=== PATIENT | female | born 1940 | race Caucasian/White ===

== ENCOUNTER 2017-04-12 11:38 | Inpatient (IN) | payer MEDICARE, BC ==
[~2017-04-12] VITALS: Ht 162.6 cm; Wt 56.7 kg
[2017-04-12] MEDS ORDERED: OMEG1CAP PO (12:01)
[2017-04-12] MEDS ORDERED: GLUC1500 PO (12:01)
[2017-04-12] MEDS ORDERED: CYAN100071 PO (12:01)
[2017-04-12] MEDS ORDERED: MULT-39 PO (12:01)
[2017-04-12] MEDS ORDERED: LOSA25TA13 PO (12:01)
[2017-04-12] MEDS ORDERED: ASPI-1094 PO (12:01)
[2017-04-12] MEDS ORDERED: ATOR40TA PO (12:01)
[2017-04-12] MEDS ORDERED: CALC-860 PO (12:01)
--- NOTE | 2017-04-12 12:06 | NUR ---
Pt BIB family, reports she has been having halucinations x 1 week, denies SI, HI. Pt has no complaints, no distress noted.
[2017-04-12 12:46] LABS: BASOPHILS % (AUTO) 0.5 % (0.0-2.0); EOSINOPHILS % (AUTO) 0.8 % (0.0-7.0); HEMATOCRIT 45.5 % (37-47); HEMOGLOBIN 14.9 G/DL (12.0-16.0); LYMPHOCYTES # (AUTO) 1.1 K/UL (0.8-4.8); LYMPHOCYTES % (AUTO) 21.7 % (20.5-51.5); MEAN CORPUSCULAR HEMOGLOBIN 30.6 UUG (27.0-31.0); MEAN CORPUSCULAR HGB CONC 33 g/dL (32.0-37.0); MEAN CORPUSCULAR VOLUME 93.3 FL (81.0-99.0); MONOCYTES # (AUTO) 0.3 K/UL (0.1-1.30); MONOCYTES % (AUTO) 5.6 % (0.0-11.0); NEUTROPHILS # (AUTO) 3.8 K/UL (1.8-8.9); NEUTROPHILS % (AUTO) 71.4 % (38.5-71.5); PLATELET COUNT (AUTO) 192 K/UL (150-450); RED BLOOD CELL COUNT(AUTO) 4.88 MIL/UL (4.2-5.4); WHITE BLOOD COUNT (AUTO) 5.3 K/UL (4.0-11.2)
[2017-04-12 12:54] LABS: CARBON DIOXIDE 27 mmol/L (21-32); CHLORIDE 106 mmol/L (98-107); GLUCOSE 130 mg/dL (74-106); POTASSIUM 4.2 mmol/L (3.5-5.1); UREA NITROGEN, BLOOD 17 mg/dL (7-18)
[2017-04-12 12:57] LABS: ETHANOL < 3 MG/DL (0-0)
[2017-04-12 13:07] LABS: ALANINE AMINOTRANSFERASE 22 U/L (14-59); ALKALINE PHOSPHATASE 97 U/L (50-136); ASPARTATE AMINOTRANSFERASE 15 U/L (15-37); BILIRUBIN,DIRECT 0.1 mg/dL (0.0-0.2); BILIRUBIN,TOTAL 0.7 mg/dL (0.2-1.0); TOTAL PROTEIN, SERUM 7.3 g/dL (6.4-8.2)
[2017-04-12 13:11] LABS: ACETAMINOPHEN < 2.0 ug/mL (10-30)
--- NOTE | 2017-04-12 13:28 | NUR ---
John, psych razor grinder, present bedside.
--- NOTE | 2017-04-12 14:26 | NUR ---
Pt resting in bed, no distress noted, family bedside. Pt was placed on 5150 hold -- 1345. Called for bed assignment, they will call back
--- NOTE | 2017-04-12 15:27 | NUR ---
report given to DEEPALI Grace.
[2017-04-12] MEDS ORDERED: ACETAMINOPHEN 325 MG TABLET PO PRN (16:15)
[2017-04-12] MEDS ORDERED: MAG HYDROX/AL HYDROX/SIMETH 30 ML LIQUID UDC PO PRN (16:15)
[2017-04-12] MEDS ORDERED: TEMAZEPAM 7.5 MG CAPSULE PO PRN (16:15)
[2017-04-12] MEDS ORDERED: LORAZEPAM 0.5 MG TABLET PO PRN (16:15)
[2017-04-12] MEDS ORDERED: ZOLPIDEM 5 MG TABLET PO PRN (16:30)
[2017-04-12 16:38] VITALS: BP 161/83
[2017-04-12] MEDS: ATORVASTATIN 40 MG TABLET PO SCH (20:49)
[2017-04-12 21:50] VITALS: BP 159/100
--- NOTE | 2017-04-12 22:00 | NUR ---
received to care, sitting at her bedside, pleasant upon approach. appears distracted by internal stimuli. pt is alert, but confused. asked several times where her mother is, even though she is 77 years old. b/p was slightly elevated, 159/100, hr 70. [facility] was called. awaiting call back from MD. as of 2199, she appears to be asleep. no distress noted. will continue to monitor closely.
--- NOTE | 2017-04-13 06:00 | NUR ---
slept 8.5 hours, total.
--- NOTE | 2017-04-13 07:10 | NUR ---
RECEIVED TO CARE, PT SITTING UP IN BED, QUIET AND CALM, WILL CONT TO MONITOR FOR SAFETY.
[2017-04-13 07:56] LABS: THYROID STIMULATING HORMONE 2.218 mIU/mL (0.358-3.740)
[2017-04-13] MEDS ORDERED: MULTIVITAMINS PO SCH (09:00)
[2017-04-13] MEDS ORDERED: Medication Not On Formulary EA (Glucosamine Hcl 1,500 MG) PO SCH (09:00)
[2017-04-13] MEDS: CALCIUM CARB/VITAMIN D 600-400 MG TABLET PO SCH (09:08)
[2017-04-13] MEDS: CYANOCOBALAMIN 1,000 MCG TABLET PO SCH (09:08)
[2017-04-13] MEDS: MULTIVITAMINS,THERAPEUTIC TABLET PO SCH (09:08)
[2017-04-13] MEDS: OMEGA-3 FATTY ACIDS/FISH OIL CAPSULE PO SCH (09:08)
[2017-04-13] MEDS: LOSARTAN POTASSIUM 25 MG TABLET PO SCH (09:09)
[2017-04-13] MEDS: ASPIRIN 81 MG TAB.CHEW PO SCH (09:09)
--- NOTE | 2017-04-13 10:00 | NUR ---
PT TOOK ALL AM MEDS, SITTING UP IN BED.
[2017-04-13] MEDS: AMLODIPINE 2.5 MG TABLET PO SCH (10:30)
--- NOTE | 2017-04-13 10:30 | NUR ---
PT TOOK [employer] FOR BLOOD PRESSURE.
[2017-04-13] MEDS: BOOST PLUS 237 ML LIQUID (RICH CHOCOLATE) PO SCH ×2 (11:42→18:00)
[2017-04-13 15:00] VITALS: BP 137/82
--- NOTE | 2017-04-13 18:45 | NUR ---
PT REMAINS IN ROOM ISOLATIVE, FAMILY MEMBERS CAME TO SEE PT.
[2017-04-13 20:52] VITALS: BP 154/103
[2017-04-13] MEDS: ATORVASTATIN 40 MG TABLET PO SCH (22:47)
[2017-04-13] MEDS: QUETIAPINE FUMARATE 25 MG TABLET PO SCH (22:47)
[2017-04-14 07:30] VITALS: BP 130/80
[2017-04-14] MEDS: OMEGA-3 FATTY ACIDS/FISH OIL CAPSULE PO SCH (08:53)
[2017-04-14] MEDS: BOOST PLUS 237 ML LIQUID (RICH CHOCOLATE) PO SCH ×3 (08:53→17:14)
[2017-04-14] MEDS: MULTIVITAMINS,THERAPEUTIC TABLET PO SCH (08:53)
[2017-04-14] MEDS: CALCIUM CARB/VITAMIN D 600-400 MG TABLET PO SCH (08:54)
[2017-04-14] MEDS: LOSARTAN POTASSIUM 25 MG TABLET PO SCH (08:54)
[2017-04-14] MEDS: ASPIRIN 81 MG TAB.CHEW PO SCH (08:54)
[2017-04-14] MEDS: PAROXETINE HCL 10 MG TABLET PO SCH (08:54)
[2017-04-14] MEDS: CYANOCOBALAMIN 1,000 MCG TABLET PO SCH (08:54)
[2017-04-14] MEDS: AMLODIPINE 2.5 MG TABLET PO SCH (08:54)
[2017-04-14 10:48] LABS: *BLOOD, URINE Trace-lysed (NEGATIVE); *CLARITY,URINE SLIGHTLY CLOUDY (CLEAR); *COLOR,URINE YELLOW (YELLOW); *KETONES,URINE TRACE (NEGATIVE); *PROTEIN,URINE TRACE (NEGATIVE); *UROBILINOGEN,URINE 0.2 E.U./dl (NORMAL); LEUKOCYTE ESTERASE ,URINE NEGATIVE (NEGATIVE); NITRITE, URINE NEGATIVE (NEGATIVE); UGLUCOSE NEGATIVE (NEGATIVE)
[2017-04-14 10:56] LABS: *BILIRUBIN,URIN NEGATIVE (NEGATIVE)
[2017-04-14 11:07] LABS: BACTERIA,URINE FEW /HPF (NONE SEEN); SQUAMOUS EPITHELIAL CELL,UR MODERATE /HPF (NONE SEEN); WBC,URINE 0-3 /HPF (0-3)
[2017-04-14 11:08] LABS: CALCIUM OXALATE CRYSTALS,UR MODERATE /HPF (NONE SEEN); MUCUS,URINE MODERATE /LPF (0-FEW)
[2017-04-14 15:21] VITALS: BP 135/87
[2017-04-14 20:00] VITALS: BP 122/82
[2017-04-14] MEDS: QUETIAPINE FUMARATE 25 MG TABLET PO SCH (20:12)
[2017-04-14] MEDS: ATORVASTATIN 40 MG TABLET PO SCH (20:12)
[2017-04-15 00:10] VITALS: BP 134/70
[2017-04-15 07:24] LABS: BASOPHILS % (AUTO) 0.6 % (0.0-2.0); EOSINOPHILS # (AUTO) 0.1 K/uL (0.0-0.7); HEMATOCRIT 39.4 % (37-47); HEMOGLOBIN 13.3 G/DL (12.0-16.0); LYMPHOCYTES # (AUTO) 3.1 K/UL (0.8-4.8); LYMPHOCYTES % (AUTO) 44.9 % (20.5-51.5); MEAN CORPUSCULAR HEMOGLOBIN 31.6 UUG (27.0-31.0); MEAN CORPUSCULAR HGB CONC 34 g/dL (32.0-37.0); MEAN CORPUSCULAR VOLUME 93.5 FL (81.0-99.0); MONOCYTES # (AUTO) 0.5 K/UL (0.1-1.30); MONOCYTES % (AUTO) 8.2 % (0.0-11.0); NEUTROPHILS % (AUTO) 44.3 % (38.5-71.5); PLATELET COUNT (AUTO) 160 K/UL (150-450); RED BLOOD CELL COUNT(AUTO) 4.21 MIL/UL (4.2-5.4); WHITE BLOOD COUNT (AUTO) 6.7 K/UL (4.0-11.2)
[2017-04-15 07:30] VITALS: BP 145/77
[2017-04-15 07:52] LABS: ALANINE AMINOTRANSFERASE 17 U/L (14-59); ALKALINE PHOSPHATASE 73 U/L (50-136); ASPARTATE AMINOTRANSFERASE 16 U/L (15-37); BILIRUBIN,TOTAL 0.9 mg/dL (0.2-1.0); CARBON DIOXIDE 29 mmol/L (21-32); CHLORIDE 110 mmol/L (98-107); CREATININE 0.9 mg/dL (0.6-1.3); GLUCOSE 78 mg/dL (74-106); MAGNESIUM 1.9 mg/dL (1.8-2.4); PHOSPHOROUS 4.4 mg/dL (2.5-4.9); POTASSIUM 3.8 mmol/L (3.5-5.1); TOTAL PROTEIN, SERUM 5.8 g/dL (6.4-8.2); UREA NITROGEN, BLOOD 17 mg/dL (7-18)
[2017-04-15] MEDS: MULTIVITAMINS,THERAPEUTIC TABLET PO SCH (09:55)
[2017-04-15] MEDS: CALCIUM CARB/VITAMIN D 600-400 MG TABLET PO SCH (09:55)
[2017-04-15] MEDS: CYANOCOBALAMIN 1,000 MCG TABLET PO SCH (09:55)
[2017-04-15] MEDS: ASPIRIN 81 MG TAB.CHEW PO SCH (09:55)
[2017-04-15] MEDS: OMEGA-3 FATTY ACIDS/FISH OIL CAPSULE PO SCH (09:55)
[2017-04-15] MEDS: LOSARTAN POTASSIUM 25 MG TABLET PO SCH (09:56)
[2017-04-15] MEDS: PAROXETINE HCL 10 MG TABLET PO SCH (09:56)
[2017-04-15] MEDS: AMLODIPINE 2.5 MG TABLET PO SCH (09:56)
[2017-04-15] MEDS: BOOST PLUS 237 ML LIQUID (RICH CHOCOLATE) PO SCH ×3 (09:57→17:35)
--- NOTE | 2017-04-15 13:14 | NUR ---
Initial discharge instructions: Patient resides at home with her [[address] [place], [place],[address];[phone]].Per pt,she would like to return home upon discharge.SW attempted to speak with pt's ,Sony but no answer at this time.Therefore,SW left a voicemail requesting a call back.ROXANNE will speak with pt,family,and MD regarding appropriate discharge plans.ROXANNE will form a safe and proper discharge.
[2017-04-15] MEDS ORDERED: CIPROFLOXACIN HCL 250 MG TABLET PO SCH (14:45)
[2017-04-15] MEDS: CIPROFLOXACIN HCL 250 MG TABLET PO SCH ×2 (15:47→20:20)
[2017-04-15] MEDS: MEMANTINE HCL 5 MG TABLET PO SCH ×2 (15:48→20:20)
[2017-04-15 16:56] VITALS: BP 123/76
[2017-04-15 20:17] VITALS: BP 127/65
[2017-04-15] MEDS: ATORVASTATIN 40 MG TABLET PO SCH (20:19)
[2017-04-15] MEDS: QUETIAPINE FUMARATE 25 MG TABLET PO SCH (20:20)
[2017-04-15] MEDS: DONEPEZIL 5 MG TABLET PO SCH (20:20)
--- NOTE | 2017-04-15 22:00 | NUR ---
received to care, sitting in her room, pleasant, but confused, upon approach. compliant with medications, and staff direction. as of 2199, she appears to be asleep. no distress noted. will continue to monitor closely.
--- NOTE | 2017-04-16 06:00 | NUR ---
slept 6.0 hours, total.
[2017-04-16 07:30] VITALS: BP 152/56
[2017-04-16] MEDS: CIPROFLOXACIN HCL 250 MG TABLET PO SCH (09:23)
[2017-04-16] MEDS: MULTIVITAMINS,THERAPEUTIC TABLET PO SCH (09:23)
[2017-04-16] MEDS: LOSARTAN POTASSIUM 25 MG TABLET PO SCH (09:23)
[2017-04-16] MEDS: OMEGA-3 FATTY ACIDS/FISH OIL CAPSULE PO SCH (09:23)
[2017-04-16] MEDS: CYANOCOBALAMIN 1,000 MCG TABLET PO SCH (09:23)
[2017-04-16] MEDS: ASPIRIN 81 MG TAB.CHEW PO SCH (09:23)
[2017-04-16] MEDS: PAROXETINE HCL 10 MG TABLET PO SCH (09:23)
[2017-04-16] MEDS: MEMANTINE HCL 5 MG TABLET PO SCH ×2 (09:23→21:46)
[2017-04-16] MEDS: CALCIUM CARB/VITAMIN D 600-400 MG TABLET PO SCH (09:23)
[2017-04-16] MEDS: AMLODIPINE 2.5 MG TABLET PO SCH (09:24)
[2017-04-16] MEDS: BOOST PLUS 237 ML LIQUID (RICH CHOCOLATE) PO SCH ×3 (09:24→17:56)
[2017-04-16 16:32] VITALS: BP 140/69
--- NOTE | 2017-04-16 19:45 | NUR ---
Received report from [facility] nurse.
--- NOTE | 2017-04-16 20:00 | NUR ---
Admitted patient from [facility]. Pt awake alert and oriented 1-2. Able to make needs known though very quiet. Denies any pain or discomforts at this time. Sitter 1:1 provided, at bedside. Continue plan of care.
[2017-04-16 20:14] VITALS: BP 180/80
[2017-04-16] MEDS: DONEPEZIL 5 MG TABLET PO SCH (21:46)
[2017-04-16] MEDS: ATORVASTATIN 40 MG TABLET PO SCH (21:46)
[2017-04-16] MEDS: QUETIAPINE FUMARATE 25 MG TABLET PO SCH (21:46)
[2017-04-16] MEDS: NITROFURANTOIN/NITROFURAN MAC 100 MG CAPSULE PO SCH (21:46)
--- NOTE | 2017-04-17 05:55 | NUR ---
Slept well. No complaint presented all night. Remains 1:1 as ordered. All needs attended and met. Continue care as planned.
--- NOTE | 2017-04-17 07:03 | NUR ---
Bedside reporting with DEEPALI Barraza
[2017-04-17 08:09] LABS: *VITAMIN D 25-OH VIT D 29 ng/mL (.); *VITAMIN D 25-OH, D2 <1.0 ng/mL (.); *VITAMIN D 25-OH, D3 28 ng/mL (.)
[2017-04-17] MEDS: MULTIVITAMINS,THERAPEUTIC TABLET PO SCH (08:38)
[2017-04-17] MEDS: PAROXETINE HCL 10 MG TABLET PO SCH (08:38)
[2017-04-17] MEDS: CYANOCOBALAMIN 1,000 MCG TABLET PO SCH (08:38)
[2017-04-17] MEDS: LOSARTAN POTASSIUM 25 MG TABLET PO SCH (08:38)
[2017-04-17] MEDS: CALCIUM CARB/VITAMIN D 600-400 MG TABLET PO SCH (08:38)
[2017-04-17] MEDS: MEMANTINE HCL 5 MG TABLET PO SCH ×2 (08:38→20:14)
[2017-04-17] MEDS: ASPIRIN 81 MG TAB.CHEW PO SCH (08:38)
[2017-04-17] MEDS: OMEGA-3 FATTY ACIDS/FISH OIL CAPSULE PO SCH (08:38)
[2017-04-17] MEDS: AMLODIPINE 2.5 MG TABLET PO SCH (08:38)
[2017-04-17] MEDS: BOOST PLUS 237 ML LIQUID (RICH CHOCOLATE) PO SCH ×3 (08:38→17:17)
[2017-04-17] MEDS: NITROFURANTOIN/NITROFURAN MAC 100 MG CAPSULE PO SCH ×2 (08:38→20:14)
[2017-04-17] MEDS: MAGNESIUM HYDROXIDE 30 ML LIQUID UDC PO PRN (09:44)
[2017-04-17] MEDS: QUETIAPINE FUMARATE 25 MG TABLET PO SCH ×2 (09:44→20:14)
[2017-04-17 10:00] VITALS: BP 127/79
[2017-04-17 15:09] VITALS: BP 108/75
--- NOTE | 2017-04-17 18:12 | NUR ---
PT AWAKE IN BED WITH FAMILY AT BEDSIDE, HAD EPISODES OF CRYING X2 THROUGHOUT SHIFT, STATING DOES NOT KNOW WHY SHE IS HERE. TOLERATED DIET WELL, COMPLIANT WITH MEDICATIONS AND CARE. 1:1 SITTER MAINTAINED FOR SAFETY, ALL SAFETY AND COMFORT MEASURES MAINTAINED THROUGHOUT SHIFT.
--- NOTE | 2017-04-17 19:25 | NUR ---
Bedside reporting with DEEPALI Barraza. Received patient on bed, awake, trying to get out of bed. Instructed patient to remain on bed and she obeyed. Denies any pain or discomforts at thsi time. Sitter 1:1 maintained, at bedside. Continue care as planned.
[2017-04-17 20:00] VITALS: BP 144/96
[2017-04-17] MEDS: DONEPEZIL 5 MG TABLET PO SCH (20:14)
[2017-04-17] MEDS: ATORVASTATIN 40 MG TABLET PO SCH (20:14)
--- NOTE | 2017-04-18 06:16 | NUR ---
Slept well. No problem presented all night. Remains on 1:1 sitter as ordered for safety. No significant event reported all night. Continue care as planned.
--- NOTE | 2017-04-18 06:53 | NUR ---
Bedside reporting with DEEPALI Kingston
[2017-04-18 07:49] VITALS: BP 147/77
--- NOTE | 2017-04-18 08:00 | NUR ---
awake, looks depressed, states will eat later, denies of pain, sitter in the room, safety measures maintained
[2017-04-18] MEDS: BOOST PLUS 237 ML LIQUID (RICH CHOCOLATE) PO SCH ×3 (08:19→17:14)
[2017-04-18] MEDS: ASPIRIN 81 MG TAB.CHEW PO SCH (08:20)
[2017-04-18] MEDS: MEMANTINE HCL 5 MG TABLET PO SCH ×2 (08:20→20:09)
[2017-04-18] MEDS: NITROFURANTOIN/NITROFURAN MAC 100 MG CAPSULE PO SCH ×2 (08:20→20:09)
[2017-04-18] MEDS: CYANOCOBALAMIN 1,000 MCG TABLET PO SCH (08:20)
[2017-04-18] MEDS: OMEGA-3 FATTY ACIDS/FISH OIL CAPSULE PO SCH (08:20)
[2017-04-18] MEDS: CALCIUM CARB/VITAMIN D 600-400 MG TABLET PO SCH (08:20)
[2017-04-18] MEDS: QUETIAPINE FUMARATE 25 MG TABLET PO SCH ×3 (08:21→20:10)
[2017-04-18] MEDS: AMLODIPINE 2.5 MG TABLET PO SCH (08:21)
[2017-04-18] MEDS: PAROXETINE HCL 10 MG TABLET PO SCH (08:21)
[2017-04-18] MEDS: MULTIVITAMINS,THERAPEUTIC TABLET PO SCH (08:21)
[2017-04-18] MEDS: LOSARTAN POTASSIUM 25 MG TABLET PO SCH (08:21)
[2017-04-18 12:20] VITALS: BP 119/75
[2017-04-18 15:42] VITALS: BP 120/72
--- NOTE | 2017-04-18 15:45 | NUR ---
seen by Dr Botello
--- NOTE | 2017-04-18 18:04 | NUR ---
derek here visiting, pt calm and interacting well, fair appetite Addendum: 04/18/17 at 1815 by ROSALINO SCHULTZ RN no crying episode during this shift, no suicidal ideation noted, remains on 1:1 sitter, safety and comfort measures maintained
[2017-04-18 20:00] VITALS: BP 148/79
--- NOTE | 2017-04-18 20:00 | NUR ---
COOPERATIVE.TOOK ALL MEDICATION,APPROPRIATE, SITTER AT BEDSIDE.RESTING COMFORTABLY.
[2017-04-18] MEDS: DONEPEZIL 5 MG TABLET PO SCH (20:09)
[2017-04-18] MEDS: ATORVASTATIN 40 MG TABLET PO SCH (20:09)
--- NOTE | 2017-04-19 05:13 | NUR ---
SLEPT MOST OF THE NITE, NO COMPLAINTS,SITTER AT BEDSIDE.
--- NOTE | 2017-04-19 07:50 | NUR ---
PT AWAKE IN BED, STILL CONFUSED TO WHY HERE. REORIENTED AND REMINDED PT. ABLE TO MAKE NEED KNOWN, 1:1 SITTER MAINTAINED AT BEDSIDE FOR SAFETY, ALL SAFETY AND COMFORT MEASURES ATTENDED TO, WILL CONTINUE TO MONITOR
[2017-04-19 08:00] VITALS: BP 146/90
[2017-04-19] MEDS: NITROFURANTOIN/NITROFURAN MAC 100 MG CAPSULE PO SCH ×2 (08:32→20:05)
[2017-04-19] MEDS: MULTIVITAMINS,THERAPEUTIC TABLET PO SCH (08:34)
[2017-04-19] MEDS: ASPIRIN 81 MG TAB.CHEW PO SCH (08:35)
[2017-04-19] MEDS: MEMANTINE HCL 5 MG TABLET PO SCH ×2 (08:35→20:05)
[2017-04-19] MEDS: CYANOCOBALAMIN 1,000 MCG TABLET PO SCH (08:36)
[2017-04-19] MEDS: QUETIAPINE FUMARATE 25 MG TABLET PO SCH ×3 (08:36→20:05)
[2017-04-19] MEDS: CALCIUM CARB/VITAMIN D 600-400 MG TABLET PO SCH (08:36)
[2017-04-19] MEDS: OMEGA-3 FATTY ACIDS/FISH OIL CAPSULE PO SCH (08:36)
[2017-04-19] MEDS: PAROXETINE HCL 10 MG TABLET PO SCH (08:36)
[2017-04-19] MEDS: AMLODIPINE 2.5 MG TABLET PO SCH (08:37)
[2017-04-19] MEDS: LOSARTAN POTASSIUM 25 MG TABLET PO SCH (08:37)
[2017-04-19] MEDS: BOOST PLUS 237 ML LIQUID (RICH CHOCOLATE) PO SCH ×3 (08:38→17:24)
[2017-04-19] MEDS: MAGNESIUM HYDROXIDE 30 ML LIQUID UDC PO PRN (12:25)
[2017-04-19 15:07] VITALS: BP 133/82
--- NOTE | 2017-04-19 15:07 | NUR ---
Discharge Note Saturday04/20/2017- Patient will be discharged back home [[address] [place], [address]; [phone]] via private transportation at 2:00 pm. Patient will be picked up by her , Sony Flecther [phone]. He is aware and agreeable with discharge plans. Patient will follow-up with (Return Agent) [[address], [place] [address]; ] and (Psychiatrist) [[facility], [address], [place] [address]; ]. Patient will be provided with caregiving resources ([facility] and [facility]. A home health order will be faxed to [facility] [ / Fx: [phone]] for an in home nursing evaluation.
--- NOTE | 2017-04-19 15:15 | NUR ---
SITTER/RECORD LIBRARIAN WAS HELPING PT IN RESTROOM WHEN NOTICED BRIGHT RED BLOOD ON PT HANDS AND IN TOILET. CLEANED PT AND NOTICED HEMMRHOIDS. PAGED DR KHAN TO NOTIFY
--- NOTE | 2017-04-19 17:20 | NUR ---
DR AWARE OF PT CONDITION. NO ORDERS AT THIS TIME. HERE TO RELIGIOUS EDUCATION DIRECTOR PT BELONGINGS, BELONGINGS FORM SIGNED. LEFT PT WITH BLUE ROBE AND MEDICATION IN PHARMACY
--- NOTE | 2017-04-19 18:56 | NUR ---
PATIENT RESTING IN BED WITH IN THE ROOM. NO SIGNS OF ANXIETY OR ANY BEHAVIORAL ISSUES AT THIS TIME. NURSING CARE RENDERED.
[2017-04-19 19:50] VITALS: BP 114/68
--- NOTE | 2017-04-19 20:00 | NUR ---
RECEIVED PATIENT AWAKE, WALKING AROUND IN ROOM. A/O X2. DENIES PAIN OR DISCOMFORT. VS WNL. SITTER AT BEDSIDE FOR SAFETY. CALL LIGHT IN REACH. ALL NEEDS ATTENDED. WILL CONTINUE TO MONITOR.
[2017-04-19] MEDS: DONEPEZIL 5 MG TABLET PO SCH (20:05)
[2017-04-19] MEDS: ATORVASTATIN 40 MG TABLET PO SCH (20:05)
--- NOTE | 2017-04-20 06:31 | NUR ---
PATIENT SLEPT 10 HOURS. SITTER AT BEDSIDE. ALL NEEDS ATTENDED. WILL CONTINUE TO MONITOR.
--- NOTE | 2017-04-20 07:35 | NUR ---
PT AWAKE SITTING IN BED. NO NEEDS AT THIS TIME, NO EPISODES OF RECTAL BLEEDING DURING THE NIGHT, ALL SAFETY AND COMFORT MEASURES ATTENDED TO, SITTER AT BEDSIDE, WILL CONTINUE TO MONITOR
[2017-04-20 07:38] VITALS: BP 132/75
[2017-04-20] MEDS: BOOST PLUS 237 ML LIQUID (RICH CHOCOLATE) PO SCH ×2 (08:09→12:07)
[2017-04-20] MEDS: NITROFURANTOIN/NITROFURAN MAC 100 MG CAPSULE PO SCH (08:09)
[2017-04-20] MEDS: MEMANTINE HCL 5 MG TABLET PO SCH (08:09)
[2017-04-20] MEDS: OMEGA-3 FATTY ACIDS/FISH OIL CAPSULE PO SCH (08:09)
[2017-04-20] MEDS: MULTIVITAMINS,THERAPEUTIC TABLET PO SCH (08:10)
[2017-04-20] MEDS: CALCIUM CARB/VITAMIN D 600-400 MG TABLET PO SCH (08:10)
[2017-04-20] MEDS: QUETIAPINE FUMARATE 25 MG TABLET PO SCH (08:10)
[2017-04-20] MEDS: LOSARTAN POTASSIUM 25 MG TABLET PO SCH (08:10)
[2017-04-20] MEDS: CYANOCOBALAMIN 1,000 MCG TABLET PO SCH (08:10)
[2017-04-20] MEDS: PAROXETINE HCL 10 MG TABLET PO SCH (08:10)
[2017-04-20] MEDS: ASPIRIN 81 MG TAB.CHEW PO SCH (08:10)
[2017-04-20] MEDS: AMLODIPINE 2.5 MG TABLET PO SCH (08:11)
[2017-04-20 14:45] LABS: HEMATOCRIT 39.6 % (37-47); HEMOGLOBIN 13.2 G/DL (12.0-16.0)
[2017-04-20 15:35] VITALS: BP 111/66
--- NOTE | 2017-04-20 16:52 | NUR ---
HOLD WAS D/C'D. DISCHARGE ORDER NOTED. DISCHARGE PROTOCOL FOLLOWED, PRESCRIPTIONS WERE GIVEN TO , EDUCATION FOR FOLLOW UP AND IN CASE OF EMERGENCY TO RETURN TO HOSPITAL PROVIDED TO AND PT, VERBALIZED UNDERSTANDING. PT BELONGINGS WERE SENT HOME YESTERDAY WITH . PT WAS TAKEN DOWN IN WHEELCHAIR ACCOMPANIED BY BIOCHEMISTRY SPECIALIST AND FRIEND. LEFT IN PRIVATE CAR WITH AND FRIEND.
== END 2017-04-20 17:47 | disposition home health service (06) | DRG 885 ==
LOC: ER 11:50 → EDBD 11:50 → GPS 15:33 → MED 04-16 19:49 → GPSOV 04-16 20:30
PROVIDERS: ADMIT Psychiatry & Neurology Psychiatry; ATTEND Internal Medicine
DX: F23 Brief psychotic disorder (principal); F02.81 Dementia in other diseases classified elsewhere, unspecified severity, with behavioral disturbance; B95.2 Enterococcus as the cause of diseases classified elsewhere; N39.0 Urinary tract infection, site not specified; E44.0 Moderate protein-calorie malnutrition; G30.9 Alzheimer's disease, unspecified; R32 Unspecified urinary incontinence; E78.5 Hyperlipidemia, unspecified; I10 Essential (primary) hypertension; Z88.0 Allergy status to penicillin; Z88.2 Allergy status to sulfonamides; Z90.710 Acquired absence of both cervix and uterus; R63.4 Abnormal weight loss; Z68.21 Body mass index [BMI] 21.0-21.9, adult; I25.10 Atherosclerotic heart disease of native coronary artery without angina pectoris; F41.9 Anxiety disorder, unspecified; K64.9 Unspecified hemorrhoids; N20.0 Calculus of kidney; K59.00 Constipation, unspecified; F32.9 Major depressive disorder, single episode, unspecified; R73.9 Hyperglycemia, unspecified
CPT/HCPCS: 36415; 71010; 83735; 84100; 84443; 85018; 85025; 87077; 87086; 93005; 97161; A4663; G0480; G0480-TC